=== PATIENT | male | born 1930 | race Caucasian/White ===

== ENCOUNTER 2017-06-22 07:30 | Day surgery (SDC) | payer MEDICARE, OTHER ==
[2017-06-22 04:43] LABS: BASOPHILS ABSOLUTE AUTO 0.02 K/mm3 (0.00-0.23); BASOPHILS PERCENT AUTO 0 % (0-2); EOSINOPHILS PERCENT AUTO 0 % (0-6); Hematocrit 45.3 % (37.0-53.0); Hemoglobin 15.2 g/dL (13.5-17.5); IMMATURE GRAN ABSOLUTE AUTO 0.02 K/mm3 (0.00-0.10); IMMATURE GRAN PERCENT AUTO 0 % (0-1); LYMPHOCYTES ABSOLUTE AUTO 1.24 K/mm3 (0.84-5.20); LYMPHOCYTES PERCENT AUTO 18 % (21-46); MONOCYTES ABSOLUTE AUTO 0.64 K/mm3 (0.16-1.47); MONOCYTES PERCENT AUTO 9 % (4-13); Mean Corpuscular HGB 31.8 pg (26.0-34.0); Mean Corpuscular HGB Conc 33.6 g/dL (31.5-36.5); Mean Corpuscular Volume 95 fL (80-100); Mean Platelet Volume 11.5 fL (9.1-12.4); NEUTROPHILS ABSOLUTE AUTO 5.13 K/mm3 (1.96-9.15); NEUTROPHILS PERCENT AUTO 73 % (41-73); Platelet Count 212 K/mm3 (150-400); RDW Coefficient Variation 14.1 % (11.7-14.2); RDW Standard Deviation 48.8 fL (35.1-46.3); Red Blood Cell Count 4.78 M/mm3 (4.30-5.90); White Blood Cell Count 7.05 K/mm3 (4.00-11.30)
[2017-06-22 05:04] LABS: Anion Gap 7 mmol/L (6-16); Blood Urea Nitrogen 32 mg/dL (8-24); Bun/Creatinine Ratio 37.7 (12.0-20.0); CO2, Blood 28 mmol/L (21-32); Calcium, Blood 8.4 mg/dL (8.5-10.1); Chloride, Blood 103 mmol/L (98-108); Creatinine, Blood 0.85 mg/dL (0.60-1.20); Glomerular Filtration Rate >60 (60-); Glucose, Blood 196 mg/dL (70-99); Potassium, Blood 4.4 mmol/L (3.5-5.5); Sodium, Blood 138 mmol/L (136-145)
[~2017-06-22 07:30] MED LIST: ALLEGRA ALLERG180 MG PO; ASCO500 PO; Allergy Medicat25 MG PO; CEPH500 PO; ERGO400 PO; Fish Oil 1,0001 EAC3 PO; GLIP5 PO; Glucosamine Ch1 EAC4 PO; IBUP400 PO; MULVITA; Multivitamin1 EAC1 PO; NITR100CA PO; OXYACE5T PO; OXYB5 PO; PHENA200 PO
[2017-06-22] MEDS ORDERED: HYDR1TAB94 PO (08:36)
[2017-06-22] MEDS ORDERED: ASPI325 PO (08:37)
[2017-09-21] MEDS ORDERED: ASPI325 PO (11:00)
[2017-09-21] MEDS ORDERED: Percocet 5-3251 EACH PO (11:01)
== END 2017-06-22 14:22 | disposition home or self-care (01) ==
LOC: ORSCMMR 07:30 → SURS 09:34 → ORSCMMR 14:22
PROVIDERS: Orthopaedic Surgery
PROC: 0QS634Z Reposition Right Upper Femur with Internal Fixation Device, Percutaneous Approach (ICD-10-PCS; principal; 2017-06-22)
DX: S72.001A Fracture of unspecified part of neck of right femur, initial encounter for closed fracture (principal); I10 Essential (primary) hypertension; E11.9 Type 2 diabetes mellitus without complications; E78.5 Hyperlipidemia, unspecified; Z79.899 Other long term (current) drug therapy
CPT/HCPCS: 36415; 72170; 80048; 82947; 85025; C1713; C1769; J0171; J0690; J1100; J1885; J2405; J7120

== ENCOUNTER 2018-10-26 16:22 | Emergency (ER) | payer MEDICARE, OTHER ==
[~2018-10-26] VITALS: Ht 172.7 cm; Wt 70.3 kg
[~2018-10-26 16:22] MED LIST changes: +ASPI325 PO; +HYDR1TAB94 PO; +Percocet 5-3251 EACH PO
[2018-10-26] MEDS ORDERED: Mobic15 MG PO (16:53)
[2018-10-26] MEDS ORDERED: METF500C PO (16:53)
[2018-10-26] MEDS ORDERED: THERA1 EACH PO (16:54)
[2018-10-26] MEDS ORDERED: ALLEGRA ALLERG180 MG PO (16:55)
[2018-10-26] MEDS ORDERED: Norco 5-325 Ta1 EACH PO (19:19)
[2018-11-23] MEDS ORDERED: Aspirin EC81 MG PO (12:36)
[2019-01-03] MEDS ORDERED: ATOR40TA (19:23)
[2019-01-03] MEDS ORDERED: ATORVASTATIN CA10 MG PO (19:59)
[2019-01-05] MEDS ORDERED: Vsl#3 Capsule1 EACH PO (13:13)
[2019-01-05] MEDS ORDERED: CIPR500 PO (13:15)
[2019-01-05] MEDS ORDERED: CORGARD20 MG PO (13:15)
[2019-01-05] MEDS ORDERED: PANT40 PO (13:16)
== END 2018-10-26 19:40 | disposition home or self-care (01) ==
LOC: ER 16:22
DX: S01.01XA Laceration without foreign body of scalp, initial encounter (principal); S80.211A Abrasion, right knee, initial encounter; M25.551 Pain in right hip; W17.89XA Other fall from one level to another, initial encounter; E11.9 Type 2 diabetes mellitus without complications; I10 Essential (primary) hypertension; Z87.891 Personal history of nicotine dependence; Z79.899 Other long term (current) drug therapy; Z79.84 Long term (current) use of oral hypoglycemic drugs
CPT/HCPCS: 12002; 70450; 71045; 73502; 90471; 90714; 99284-25

== ENCOUNTER 2018-11-04 09:52 | Inpatient (IN) | payer MEDICARE, OTHER ==
[~2018-11-04] VITALS: Ht 172.7 cm; Wt 70.8 kg
[~2018-11-04 09:52] MED LIST changes: +METF500C PO; +Mobic15 MG PO; +Norco 5-325 Ta1 EACH PO; +THERA1 EACH PO
[2018-11-04 10:59] LABS: BASOPHILS ABSOLUTE AUTO 0.06 K/mm3 (0.00-0.23); BASOPHILS PERCENT AUTO 1 % (0-2); EOSINOPHILS ABSOLUTE AUTO 0.56 K/mm3 (0.00-0.68); EOSINOPHILS PERCENT AUTO 7 % (0-6); Hematocrit 38.9 % (37.0-53.0); Hemoglobin 12.6 g/dL (13.5-17.5); IMMATURE GRAN ABSOLUTE AUTO 0.04 K/mm3 (0.00-0.10); IMMATURE GRAN PERCENT AUTO 1 % (0-1); LYMPHOCYTES PERCENT AUTO 17 % (21-46); MONOCYTES ABSOLUTE AUTO 1.27 K/mm3 (0.16-1.47); MONOCYTES PERCENT AUTO 15 % (4-13); Mean Corpuscular HGB 32.1 pg (26.0-34.0); Mean Corpuscular HGB Conc 32.4 g/dL (31.5-36.5); Mean Corpuscular Volume 99 fL (80-100); Mean Platelet Volume 10.8 fL (9.1-12.4); NEUTROPHILS ABSOLUTE AUTO 5.17 K/mm3 (1.96-9.15); NEUTROPHILS PERCENT AUTO 61 % (41-73); Platelet Count 265 K/mm3 (150-400); RDW Coefficient Variation 14.5 % (11.7-14.2); RDW Standard Deviation 52.1 fL (35.1-46.3); Red Blood Cell Count 3.92 M/mm3 (4.30-5.90)
[2018-11-04 11:16] LABS: International Normalized Ratio 1.02; Prothrombin Time Results 10.8 Sec (9.7-11.5)
[2018-11-04 11:17] LABS: Anion Gap 5 mmol/L (6-16); Blood Urea Nitrogen 23 mg/dL (8-24); CO2, Blood 30 mmol/L (21-32); Chloride, Blood 101 mmol/L (98-108); Creatinine, Blood 0.92 mg/dL (0.60-1.20); Glomerular Filtration Rate >60 (60-); Glucose, Blood 272 mg/dL (70-99); Potassium, Blood 4.2 mmol/L (3.5-5.5); Sodium, Blood 136 mmol/L (136-145)
[2018-11-04] MEDS ORDERED: METF500 PO (12:06)
--- NOTE | 2018-11-04 12:11 | NUR ---
DR PARSONS HERE TO SEE PT.
--- NOTE | 2018-11-04 16:00 | NUR ---
SHIFT SUMMARY PT BEEN ASSISTED WITH ADL'S PRN. PT BEEN IN RESTRAINTS SHE ATTEMPTS TO PULL AT LINES AT TIMES. PT BEEN REPOSITIONED MULT TIMES. PT UP TO CHAIR TODAY AND GIVEN BED BATH WITH MULT ASSIST. TAB ALARM IN PLACE. PT BEEN RESTING QUIETLY. SCD'S TO BLE IN PLACE. PT WOUND VAC CONT TO BE WNL. PT HAS MEPILEX IN PLACE TO BOTTOM. PT CONT TO HAVE NO SORES OR REDNESS ON HEALS. PT BEEN GIVEN MEDS WITH APPLESAUCE WITHOUT DIFFICULTY WITH ASP PREC IN PLACE. PT BEEN PLEASANT AND COOP T/O DAY.
[2018-11-05 05:46] LABS: BASOPHILS ABSOLUTE AUTO 0.06 K/mm3 (0.00-0.23); BASOPHILS PERCENT AUTO 1 % (0-2); EOSINOPHILS ABSOLUTE AUTO 1.03 K/mm3 (0.00-0.68); EOSINOPHILS PERCENT AUTO 11 % (0-6); Hematocrit 41.1 % (37.0-53.0); Hemoglobin 13.4 g/dL (13.5-17.5); IMMATURE GRAN ABSOLUTE AUTO 0.09 K/mm3 (0.00-0.10); IMMATURE GRAN PERCENT AUTO 1 % (0-1); LYMPHOCYTES ABSOLUTE AUTO 3.11 K/mm3 (0.84-5.20); LYMPHOCYTES PERCENT AUTO 32 % (21-46); MONOCYTES PERCENT AUTO 13 % (4-13); Mean Corpuscular HGB Conc 32.6 g/dL (31.5-36.5); Mean Corpuscular Volume 98 fL (80-100); Mean Platelet Volume 11.9 fL (9.1-12.4); NEUTROPHILS ABSOLUTE AUTO 4.09 K/mm3 (1.96-9.15); NEUTROPHILS PERCENT AUTO 42 % (41-73); Platelet Count 299 K/mm3 (150-400); RDW Coefficient Variation 14.6 % (11.7-14.2); RDW Standard Deviation 52.1 fL (35.1-46.3); Red Blood Cell Count 4.19 M/mm3 (4.30-5.90); White Blood Cell Count 9.68 K/mm3 (4.00-11.30)
[2018-11-05 06:33] LABS: Alanine Aminotransfer (ALT/SGP 23 U/L (12-78); Albumin, Blood 2.5 g/dL (3.4-5.0); Albumin/Globulin Ratio 0.6 (0.8-1.8); Alk Phos 173 U/L (50-136); Anion Gap 5 mmol/L (6-16); Aspartate Aminotrans (AST/SGOT 27 U/L (12-37); Blood Urea Nitrogen 19 mg/dL (8-24); Bun/Creatinine Ratio 22.4 (12.0-20.0); CO2, Blood 30 mmol/L (21-32); Calcium, Blood 8.8 mg/dL (8.5-10.1); Chloride, Blood 103 mmol/L (98-108); Creatinine, Blood 0.85 mg/dL (0.60-1.20); Globulin, Blood 4.1 g/dL (2.2-4.0); Glomerular Filtration Rate >60 (60-); Glucose, Blood 90 mg/dL (70-99); Magnesium, Blood 1.7 mg/dL (1.6-2.4); Sodium, Blood 138 mmol/L (136-145); Total Protein, Blood 6.6 g/dL (6.4-8.2)
--- NOTE | 2018-11-05 07:25 | NUR ---
SUMMARY: ADMIT DAY 2 RIGHT HIP FX ON HOSPITALIST SERVICE WITH DR. MUIR CONSULTING. VSS, AFEBRILE, ROOM AIR. PAIN WELL CONTROLLED WITH 1 TAB NORCO. PT NPO SINCE MIDNIGHT IN ANTICIPATION OF SURGERY LATER THIS DAY.
--- NOTE | 2018-11-05 09:41 | NUR ---
PT MED WITH SIP OF WATER DISCUSSED WITH DAYSURGERY.
--- NOTE | 2018-11-05 11:50 | NUR ---
PT OUT OF ROOM FOR PROCEDURE IN OWN BED.
--- NOTE | 2018-11-05 12:10 | NUR ---
INTO SDS VIA BED. PT A&OX3. REPORTS "MILD" PAIN TO RIGHT HIP. History, Chart, Medications and Allergies reviewed before start of procedure.Lungs clear T/O to Auscultation. Patient confirms NPO status and agrees with scheduled surgery.
--- NOTE | 2018-11-05 18:20 | NUR ---
PT BACK FROM HAVING PROCEDURE. PT A/O. PT DENIES PAIN AT THIS TIME. PT DENIES CP/SOB. VSS. PPX4. WIGGLES TOES. DRESSING C/D/I. ICE IN PLACE. BED ALARM IN PLACE.
[2018-11-05 21:17] LABS: Source, Urine Voided
[2018-11-05 21:22] LABS: Bilirubin, Urine Neg (Neg); Blood, Urine 5+ (Neg); Glucose Qualitative, Urine 1+ (Neg); Ketones, Urine 2+ (Neg); Leukocyte Esterase, Urine 3+ (Neg); Nitrite, Urine Neg (Neg); Protein, Urine 3+ (Neg); Specific Gravity, Urine 1.025 (1.003-1.022); Urobilinogen, Urine NORM (Normal)
[2018-11-05 21:30] LABS: Appearance, Urine Cloudy (Clear); Color, Urine Amber (P-Yellow); White Blood Cells, Urine TNTC /hpf (0-5)
[2018-11-05 21:31] LABS: Bacteria Many /hpf; Squamous Epithelial Cells Not Seen /hpf (Few)
--- NOTE | 2018-11-05 23:51 | NUR ---
PROVIDER COMMUNICATION NICOL DIAZ NOTIFIED PT POD#0 R RODDING D/T FX; HR 70-80'S SYSTOLIC BP HIGH 80-90'S. EBL DURING SURG OVER 700 MLS, ONE UNIT PRBC IN OR, URINE 450 ML; IV GTT NS WITH K+ RUNNING AT 80 ML/HR. STAT H&H ORDERED. WCTM.
[2018-11-06 00:05] LABS: Hematocrit 35.4 % (37.0-53.0); Hemoglobin 11.6 g/dL (13.5-17.5)
--- NOTE | 2018-11-06 01:02 | NUR ---
PROVIDER COMMUNICATION [id number] DR. GUILLORY NOTIFIED OF PT BP'S, HR, AND STAT Hgb OVER 11. NS AT 200 MLS/HR X1 LITER. WCTM PT.
[2018-11-06 04:49] LABS: BASOPHILS ABSOLUTE AUTO 0.06 K/mm3 (0.00-0.23); BASOPHILS PERCENT AUTO 0 % (0-2); EOSINOPHILS PERCENT AUTO 0 % (0-6); Hematocrit 32.8 % (37.0-53.0); Hemoglobin 10.6 g/dL (13.5-17.5); IMMATURE GRAN ABSOLUTE AUTO 0.05 K/mm3 (0.00-0.10); IMMATURE GRAN PERCENT AUTO 0 % (0-1); LYMPHOCYTES ABSOLUTE AUTO 1.71 K/mm3 (0.84-5.20); LYMPHOCYTES PERCENT AUTO 12 % (21-46); MONOCYTES ABSOLUTE AUTO 2.19 K/mm3 (0.16-1.47); MONOCYTES PERCENT AUTO 15 % (4-13); Mean Corpuscular HGB 32.5 pg (26.0-34.0); Mean Corpuscular HGB Conc 32.3 g/dL (31.5-36.5); Mean Platelet Volume 10.8 fL (9.1-12.4); NEUTROPHILS PERCENT AUTO 73 % (41-73); Platelet Count 262 K/mm3 (150-400); RDW Coefficient Variation 14.5 % (11.7-14.2); RDW Standard Deviation 53.6 fL (35.1-46.3); Red Blood Cell Count 3.26 M/mm3 (4.30-5.90); White Blood Cell Count 14.81 K/mm3 (4.00-11.30)
[2018-11-06 04:50] LABS: Mean Corpuscular Volume 101 fL (80-100)
--- NOTE | 2018-11-06 04:59 | NUR ---
SHIFT SUMMARY PT A&O X4 T/O SHIFT. POD#1 R HIP RODDING. DID NOT TOLERATE ICE TO SITE. DRESSING CDI T/O SHIFT. SEE PROVIDER COMMUNICATION NOTES REGARDING PT BP. PT DENIED SOB, CP, DIZZINESS AND NAUSEA T/O SHIFT. CONT. OXIMITRY IN PLACE; PT ON RA WITH SATS IN MID 90%. PAIN MANAGED PER EMAR. SCD'S TO BLE'S. CALL LIGHT IN REACH; PT DEMONSTRATES USE. WCTM UNTIL REPORT TO DAY SHIFT RN.
[2018-11-06 05:14] LABS: Alanine Aminotransfer (ALT/SGP 18 U/L (12-78); Albumin/Globulin Ratio 0.6 (0.8-1.8); Alk Phos 132 U/L (50-136); Anion Gap 5 mmol/L (6-16); Aspartate Aminotrans (AST/SGOT 27 U/L (12-37); Bilirubin, Total 0.8 mg/dL (0.1-1.0); Blood Urea Nitrogen 27 mg/dL (8-24); Bun/Creatinine Ratio 25.7 (12.0-20.0); CO2, Blood 28 mmol/L (21-32); Calcium, Blood 7.8 mg/dL (8.5-10.1); Chloride, Blood 102 mmol/L (98-108); Creatinine, Blood 1.05 mg/dL (0.60-1.20); Globulin, Blood 3.4 g/dL (2.2-4.0); Glomerular Filtration Rate >60 (60-); Glucose, Blood 179 mg/dL (70-99); Magnesium, Blood 1.6 mg/dL (1.6-2.4); Potassium, Blood 5.2 mmol/L (3.5-5.5); Sodium, Blood 135 mmol/L (136-145); Total Protein, Blood 5.4 g/dL (6.4-8.2)
--- NOTE | 2018-11-06 17:43 | NUR ---
SHIFT SUMMARY PT HAS DONE VERY WELL TODAY. WAS UP IN CHAIR FOR SEVERAL HOURS, TOLERATING DIET, PAIN VERY WELL MANAGED, HIP WNL. POOR URINE OUTPUT BUT DRINKING FLUIDS.
--- NOTE | 2018-11-07 16:50 | NUR ---
SHIFT SUMMARY PT FELT VERY TIRED TODAY BUT STILL DID WELL. PAIN WELL CONTROLLED, MINIMAL ACTIVITY, NO DRAINAGE TO DRSG, VOIDING AND GOOD PO INTAKE, DISCUSSED BOWEL CARE. PT HESISTANT.
[2018-11-08 05:02] LABS: Hematocrit 31.9 % (37.0-53.0); Hemoglobin 10.6 g/dL (13.5-17.5); Mean Corpuscular HGB 32.6 pg (26.0-34.0); Mean Corpuscular HGB Conc 33.2 g/dL (31.5-36.5); Mean Platelet Volume 10.4 fL (9.1-12.4); Platelet Count 257 K/mm3 (150-400); RDW Coefficient Variation 14.6 % (11.7-14.2); RDW Standard Deviation 52.3 fL (35.1-46.3); Red Blood Cell Count 3.25 M/mm3 (4.30-5.90); White Blood Cell Count 12.73 K/mm3 (4.00-11.30)
[2018-11-08 05:04] LABS: Mean Corpuscular Volume 98 fL (80-100)
--- NOTE | 2018-11-08 07:16 | NUR ---
SUMMARY PT REPORTS GOOD PAIN CONTROL. NO ACUTE CHANGES.
--- NOTE | 2018-11-08 13:38 | NUR ---
DISCHARGE PT D/C TO SNF; INOCENCIA REMOVED PRIOR TO DC. REPORT CALLED.
[2018-11-23] MEDS ORDERED: Aspirin EC81 MG PO (12:36)
[2019-01-03] MEDS ORDERED: ATOR40TA (19:23)
[2019-01-03] MEDS ORDERED: ATORVASTATIN CA10 MG PO (19:59)
[2019-01-05] MEDS ORDERED: Vsl#3 Capsule1 EACH PO (13:13)
[2019-01-05] MEDS ORDERED: CORGARD20 MG PO (13:15)
[2019-01-05] MEDS ORDERED: CIPR500 PO (13:15)
[2019-01-05] MEDS ORDERED: PANT40 PO (13:16)
== END 2018-11-08 13:15 | DRG 467 ==
LOC: ER 09:52 → SURS 09:53 → ER 11-05 09:45 → SURS 11-08 13:15
PROVIDERS: Emergency Medicine; Internal Medicine; Nurse Practitioner Acute Care; Orthopaedic Surgery; ADMIT Internal Medicine
PROC: 0QS604Z Reposition Right Upper Femur with Internal Fixation Device, Open Approach (ICD-10-PCS; 2018-11-05)
PROC: 0SRR0J9 Replacement of Right Hip Joint, Femoral Surface with Synthetic Substitute, Cemented, Open Approach (ICD-10-PCS; principal; 2018-11-05 11:45)
PROC: 0SPR0JZ Removal of Synthetic Substitute from Right Hip Joint, Femoral Surface, Open Approach (ICD-10-PCS; 2018-11-05 11:45)
DX: M97.01XA Periprosthetic fracture around internal prosthetic right hip joint, initial encounter (principal); R65.10 Systemic inflammatory response syndrome (SIRS) of non-infectious origin without acute organ dysfunction; V84.9XXA Unspecified occupant of special agricultural vehicle injured in nontraffic accident, initial encounter; Z96.643 Presence of artificial hip joint, bilateral; E11.9 Type 2 diabetes mellitus without complications; I10 Essential (primary) hypertension; Z79.84 Long term (current) use of oral hypoglycemic drugs; Z87.891 Personal history of nicotine dependence
CPT/HCPCS: 36415; 36430; 72170; 73502; 73552; 80048; 80053; 81001; 82947; 83036; 83735; 85014; 85018; 85025; 85027; 85610; 86850; 86900; 86901; 86923; 87077; 87086; 87186; 93005; 93010; 94762; 97110; 97116; 97162; 97166; 97530; 97535; 99285-25; A9270; A9270-GY; C1776; J0171; J0690; J0735; J1100; J1650; J1885; J2405; J2704; J2795; J3010; J3370; J3480; J7030; J7120; P9016